=== PATIENT | female | born 1985 | race Caucasian/White ===

== ENCOUNTER 2020-10-15 14:12 | Inpatient (IN) | payer MEDICAID, OTHER ==
[~2020-10-15] VITALS: Ht 157.5 cm; Wt 56.7 kg
[2020-10-15] MEDS ORDERED: SODIUM CHLORIDE 0.9% 1,000 ML IV ONE (14:30)
[2020-10-15 15:23] LABS: Basophils # (auto) 0 10 ^3/uL (0-0.2); Basophils % (auto) 0.1 % (0.0-2.0); Eosinophils # (auto) 0 10 ^3/uL (0-0.8); Eosinophils % (auto) 0.1 % (0.0-7.0); Hematocrit 41.6 % (36.0-46.0); Hemoglobin 14.5 g/dL (12.2-16.2); Lymphocytes # (auto) 1.4 10 ^3/uL (0.4-5.4); Lymphocytes % (auto) 9.7 % (10.0-50.0); Mean Corpuscular Hemoglobin 34.8 pg (28.0-32.0); Mean Corpuscular Hgb Conc. 34.8 g/dL (32.0-36.0); Mean Corpuscular Volume 100.1 fL (80.0-100.0); Monocytes # (auto) 0.5 10 ^3/uL (0-1.3); Monocytes % (auto) 3.3 % (0.0-12.0); Neutrophils # (auto) 12.4 10 ^3/uL (1.6-8.6); Neutrophils % (auto) 86.8 % (37.0-80.0); Platelet Count (auto) 339 10^3/uL (140-450); Red Blood Cells 4.16 10^6/uL (4.0-5.20); Red Cell Distribution Width 13.8 % (11.8-14.3); White Blood Cell 14.3 10^3/uL (4.4-10.8)
[2020-10-15 15:54] LABS: Potassium 4.4 mmol/L (3.5-5.1)
[2020-10-15] MEDS ORDERED: LORazepam 2MG/ML-1ML VIAL IV ONE ×3 (16:00→19:15)
[2020-10-15 16:05] LABS: Albumin 3.6 g/dL (3.4-5.0); BUN/Creatinine Ratio 12.1; Bilirubin, Total 0.3 mg/dL (0.2-1.0); Calcium 9.1 mg/dL (8.5-10.1); Total Protein 8.4 g/dL (6.4-8.2)
[2020-10-15] MEDS ORDERED: cefTRIAXone 1GM/50ML D5W 50 ML IV ONE (16:15)
[2020-10-15] MEDS ORDERED: MORPHINE SULF INJ 2 MG/ML SYRINGE 1ML IV PRN ×3 (19:00→21:45)
[2020-10-15] MEDS ORDERED: NITROGLYCERIN 0.4 MG SL TAB SL PRN ×2 (19:00→21:45)
[2020-10-15] MEDS ORDERED: LORazepam 2MG/ML-1ML VIAL IV PRN (19:15)
[2020-10-15] MEDS ORDERED: THIAMINE 100mg/ml INJ (200mg/2ml VIAL) IV ONE (19:15)
[2020-10-15] MEDS ORDERED: LACTATED RINGER'S 1,000 ML IV ONE (19:15)
[2020-10-15] MEDS ORDERED: HYDROcodone-ACET 10/325MG TAB PO ONE (19:15)
[2020-10-15] MEDS ORDERED: FOLIC ACID 1 MG in D5W 5% 50 ML INJ ONE (19:15)
[2020-10-15] MEDS ORDERED: levETIRAcetam 500 MG/5ML INJ IV ONE (20:16)
[2020-10-15] MEDS ORDERED: ALUM & MAG HYDROX-SIMETH LIQ(MAALOX) 30 ML PO PRN (21:45)
[2020-10-15] MEDS ORDERED: LORazepam 0.5 MG TAB PO PRN (21:45)
[2020-10-15] MEDS ORDERED: ONDANSETRON HCL 4 MG/2 ML VIAL IV PRN (21:45)
[2020-10-15] MEDS ORDERED: DOCUSATE SOD 100 MG CAP PO PRN (21:45)
[2020-10-15] MEDS ORDERED: HYDROcodone-ACET 5/325MG TAB PO PRN (21:45)
[2020-10-15 22:40] LABS: Cholesterol 216 mg/dL (< 200)
[2020-10-15 22:44] LABS: HDL Cholesterol 66 mg/dL (40-59); LDL Cholesterol 123 mg/dL (< 100); Triglycerides 96 mg/dL (< 150)
[2020-10-15] MEDS: CLINDAMYCIN 600MG IV 50 ML IV SCH (23:24)
[2020-10-16] MEDS: CLINDAMYCIN 600MG IV 50 ML IV SCH ×3 (05:53→22:21)
[2020-10-16 07:04] LABS: Basophils % (auto) 0.4 % (0.0-2.0); Eosinophils # (auto) 0 10 ^3/uL (0-0.8); Lymphocytes # (auto) 1.9 10 ^3/uL (0.4-5.4); Monocytes # (auto) 0.8 10 ^3/uL (0-1.3); Neutrophils # (auto) 10.7 10 ^3/uL (1.6-8.6)
[2020-10-16 07:07] LABS: Basophils # (auto) 0.1 10 ^3/uL (0-0.2); Eosinophils % (auto) 0.3 % (0.0-7.0); Hematocrit 37.8 % (36.0-46.0); Lymphocytes % (auto) 13.9 % (10.0-50.0); Mean Corpuscular Hemoglobin 34.5 pg (28.0-32.0); Mean Corpuscular Hgb Conc. 34.5 g/dL (32.0-36.0); Monocytes % (auto) 5.7 % (0.0-12.0); Neutrophils % (auto) 79.7 % (37.0-80.0); Nucleated Red Blood Cells % 0.1 %; Platelet Count (auto) 336 10^3/uL (140-450); Red Blood Cells 3.78 10^6/uL (4.0-5.20); Red Cell Distribution Width 13.8 % (11.8-14.3); White Blood Cell 13.4 10^3/uL (4.4-10.8)
[2020-10-16 07:24] LABS: INR 1.04 (0.9-1.15); Partial Thromboplastin Time 29.9 sec (23.0-31.2)
[2020-10-16 08:02] LABS: Potassium 3.5 mmol/L (3.5-5.1)
[2020-10-16 08:12] LABS: Albumin 2.9 g/dL (3.4-5.0); BUN/Creatinine Ratio 12.1; Bilirubin, Total 0.4 mg/dL (0.2-1.0); Calcium 8.1 mg/dL (8.5-10.1); Magnesium 1.9 mg/dL (1.6-2.6); Phosphorus 3.4 mg/dL (2.5-4.90)
[2020-10-16] MEDS: cefTRIAXone 1GM/50ML D5W 50 ML IV SCH (09:20)
[2020-10-16] MEDS: FOLIC ACID 1 MG TAB PO SCH (10:26)
[2020-10-16] MEDS: levETIRAcetam 500 MG TAB PO SCH ×2 (10:27→22:21)
[2020-10-16] MEDS: MULTIPLE VITAMINS W/ MINERALS TAB PO SCH (10:27)
[2020-10-16] MEDS: LORazepam 2MG/ML-1ML VIAL IV PRN ×3 (10:31→17:08)
[2020-10-16 10:59] LABS: Amphetamine Screen, Urine NEGATIVE (NEGATIVE); Barbiturate Scree,Urine NEGATIVE (NEGATIVE); Benzodiazephine Screen, Urine POSITIVE (NEGATIVE); Cannabinoid Screen, Urine POSITIVE (NEGATIVE); Cocaine Screen, Urine NEGATIVE (NEGATIVE); Phencyclidine Screen, Urine NEGATIVE (NEGATIVE)
[2020-10-16 11:06] LABS: Opiate Scree,Urine NEGATIVE (NEGATIVE)
[2020-10-16 11:11] LABS: Urine Bacteria FEW /hpf (None Seen); Urine Blood 3+ /uL (Negative); Urine Mucus FEW (None Seen); Urine Specific Gravity 1.019 (1.001-1.035); Urine WBC 158 /hpf (0 - 5); Urine WBC Clumps PRESENT /hpf (None Seen)
[2020-10-16] MEDS: HALOPERIDOL LACTATE 5 MG/ML INJ VIAL IM PRN (13:22)
[2020-10-16] MEDS ORDERED: ACETAMINOPHEN 325 MG TAB PO ONE (20:00)
[2020-10-17] MEDS: HALOPERIDOL LACTATE 5 MG/ML INJ VIAL IM PRN ×2 (00:36→18:01)
[2020-10-17] MEDS: LORazepam 2MG/ML-1ML VIAL IV PRN ×3 (02:25→17:02)
[2020-10-17] MEDS: CLINDAMYCIN 600MG IV 50 ML IV SCH (06:25)
[2020-10-17] MEDS: cefTRIAXone 1GM/50ML D5W 50 ML IV SCH (09:27)
[2020-10-17] MEDS: MULTIPLE VITAMINS W/ MINERALS TAB PO SCH (09:57)
[2020-10-17] MEDS: FOLIC ACID 1 MG TAB PO SCH (09:57)
[2020-10-17] MEDS: levETIRAcetam 500 MG TAB PO SCH ×2 (09:57→22:15)
[2020-10-18] MEDS: ACETAMINOPHEN 325 MG TAB PO PRN ×2 (02:40→13:47)
[2020-10-18] MEDS: LORazepam 2MG/ML-1ML VIAL IV PRN ×6 (03:13→14:23)
[2020-10-18] MEDS: cefTRIAXone 1GM/50ML D5W 50 ML IV SCH (09:00)
[2020-10-18] MEDS: levETIRAcetam 500 MG TAB PO SCH ×3 (10:00→22:17)
[2020-10-18] MEDS: FOLIC ACID 1 MG TAB PO SCH ×2 (10:00→13:35)
[2020-10-18] MEDS: MULTIPLE VITAMINS W/ MINERALS TAB PO SCH ×2 (10:00→13:35)
[2020-10-18] MEDS ORDERED: PHENYTOIN IV DILANTIN 1,000 MG in SODIUM CHL 0.9% 250 ML IV ONE (14:45)
[2020-10-18] MEDS ORDERED: PHENYTOIN SODIUM 50 MG/ML 2ML VIAL IV SCH (22:00)
[2020-10-19] MEDS: HALOPERIDOL LACTATE 5 MG/ML INJ VIAL IM PRN (03:47)
[2020-10-19] MEDS ORDERED: PHENYTOIN SODIUM 50 MG/ML 2ML VIAL IV SCH (07:08)
[2020-10-19] MEDS: cefTRIAXone 1GM/50ML D5W 50 ML IV SCH (10:18)
[2020-10-19] MEDS: levETIRAcetam 500 MG TAB PO SCH (10:19)
[2020-10-19] MEDS: MULTIPLE VITAMINS W/ MINERALS TAB PO SCH (10:19)
[2020-10-19] MEDS: FOLIC ACID 1 MG TAB PO SCH (10:19)
[2020-10-19 11:01] LABS: Basophils # (auto) 0.1 10 ^3/uL (0-0.2); Eosinophils # (auto) 0.2 10 ^3/uL (0-0.8); Hemoglobin 13.7 g/dL (12.2-16.2); Lymphocytes % (auto) 20.4 % (10.0-50.0); Mean Corpuscular Hemoglobin 35.1 pg (28.0-32.0)
[2020-10-19 11:04] LABS: Calcium 8.6 mg/dL (8.5-10.1); Potassium 3.4 mmol/L (3.5-5.1)
[2020-10-19 11:05] LABS: Basophils % (auto) 0.6 % (0.0-2.0); Eosinophils % (auto) 2.1 % (0.0-7.0); Hematocrit 38.7 % (36.0-46.0); Lymphocytes # (auto) 2.3 10 ^3/uL (0.4-5.4); Mean Corpuscular Hgb Conc. 35.5 g/dL (32.0-36.0); Mean Corpuscular Volume 99.1 fL (80.0-100.0); Monocytes # (auto) 0.6 10 ^3/uL (0-1.3); Monocytes % (auto) 4.9 % (0.0-12.0); Neutrophils # (auto) 8.3 10 ^3/uL (1.6-8.6); Platelet Count (auto) 376 10^3/uL (140-450); Red Blood Cells 3.91 10^6/uL (4.0-5.20); Red Cell Distribution Width 13.5 % (11.8-14.3); White Blood Cell 11.5 10^3/uL (4.4-10.8)
[2020-10-19 11:07] LABS: BUN/Creatinine Ratio 12.1; Bilirubin, Total 0.4 mg/dL (0.2-1.0); Total Protein 7.6 g/dL (6.4-8.2)
[2020-10-19] MEDS ORDERED: POTASSIUM CHL 10 Meq TABLET PO ONE (15:15)
[2020-10-19 16:35] VITALS: BP 113/64
[2020-10-19] MEDS ORDERED: PHENYTOIN SODIUM 100 MG CAP PO SCH (22:00)
[2020-10-19] MEDS ORDERED: levETIRAcetam 500 MG TAB PO SCH (22:00)
== END 2020-10-19 17:17 | disposition home or self-care (01) | DRG 53 ==
LOC: EDBD 14:12 → ER 14:12 → TELE 14:13
PROVIDERS: ADMIT Hospitalist; ATTEND Internal Medicine
DX: G40.409 Other generalized epilepsy and epileptic syndromes, not intractable, without status epilepticus (principal); E44.0 Moderate protein-calorie malnutrition; R65.10 Systemic inflammatory response syndrome (SIRS) of non-infectious origin without acute organ dysfunction; S09.90XA Unspecified injury of head, initial encounter; F10.10 Alcohol abuse, uncomplicated; E78.5 Hyperlipidemia, unspecified; G83.84 Todd's paralysis (postepileptic); F05 Delirium due to known physiological condition; F17.200 Nicotine dependence, unspecified, uncomplicated; Y90.0 Blood alcohol level of less than 20 mg/100 ml; G93.89 Other specified disorders of brain; Z20.822 Contact with and (suspected) exposure to COVID-19; Z79.899 Other long term (current) drug therapy; Z87.820 Personal history of traumatic brain injury; Z91.19 Patient's noncompliance with other medical treatment and regimen; Z91.83 Wandering in diseases classified elsewhere; Z91.030 Bee allergy status; Z91.010 Allergy to peanuts
CPT/HCPCS: 36415; 70450; 71045; 80053; 80061; 80185; 80307; 81001; 82306; 82542; 82550; 82607; 82962; 83036; 83735; 84100; 84146; 84443; 84484; 85025; 85610; 85730; 87040; 87086; 95819; 96365; 96375; 96376; G0378; J0696; J2405; J3490; J7060